=== PATIENT | female | born 1975 | race Caucasian/White ===

== ENCOUNTER 2018-06-10 21:19 | Emergency (ER) | payer MEDICARE, MEDICAID ==
[~2018-06-10] VITALS: Ht 165.1 cm; Wt 121.8 kg
[~2018-06-10 21:19] MED LIST: ALPR1TAB2 PO; CEPH250T PO; CLIN300C85 PO; DIVA500T2 PO; METF500T PO; PROP40TA72 PO; QUET200T PO; SERT100T PO
[2018-06-10 21:43] VITALS: BP 132/84
[2018-06-10] MEDS ORDERED: DOXY100C43 PO (23:39)
[2018-06-10] MEDS ORDERED: CEPH-572 PO (23:39)
== END 2018-06-10 23:52 | disposition home or self-care (01) ==
LOC: ER 21:21
DX: S90.425A Blister (nonthermal), left lesser toe(s), initial encounter (principal); L03.116 Cellulitis of left lower limb; I10 Essential (primary) hypertension; E11.9 Type 2 diabetes mellitus without complications; F15.90 Other stimulant use, unspecified, uncomplicated; G89.29 Other chronic pain; Z90.49 Acquired absence of other specified parts of digestive tract; Z88.2 Allergy status to sulfonamides; Z88.8 Allergy status to other drugs, medicaments and biological substances; Z88.5 Allergy status to narcotic agent; Z79.84 Long term (current) use of oral hypoglycemic drugs; Z79.899 Other long term (current) drug therapy; X58.XXXA Exposure to other specified factors, initial encounter; Y93.89 Activity, other specified; Y92.89 Other specified places as the place of occurrence of the external cause; Y99.8 Other external cause status
CPT/HCPCS: 82948; 99283

== ENCOUNTER 2018-10-22 15:17 | Inpatient (IN) | payer MEDICARE, MEDICAID ==
[~2018-10-22] VITALS: Ht 165.1 cm; Wt 122.0 kg
[~2018-10-22 15:17] MED LIST changes: -CEPH250T PO
[2018-10-22] MEDS ORDERED: normal saline 1000ML IV soln IV ONE (15:40)
[2018-10-22] MEDS ORDERED: ondansetron/PF 4mg/2ml inj IV ONE (15:45)
[2018-10-22] MEDS ORDERED: fentaNYL/PF 50MCG/1 ML 2ML syringe IV ONE (15:45)
[2018-10-22] MEDS ORDERED: piperacillin/tazo 4.5gm/100ml 100 ML IV SCH (16:00)
[2018-10-22 16:02] LABS: BASOPHILS # (AUTO) 0.1 X10'3 (0-0.2); BASOPHILS % (AUTO) 0.6 % (0-1); EOSINOPHILS # (AUTO) 0.3 X10'3 (0-0.9); EOSINOPHILS % (AUTO) 2.3 % (0-6); HEMATOCRIT 42.6 % (35.0-45.0); HEMOGLOBIN 14.4 g/dl (12.0-16.0); LYMPHOCYTES # (AUTO) 2.6 X10'3 (1.1-4.8); LYMPHOCYTES % (AUTO) 20.9 % (21-51); MEAN CORPUSCULAR HEMOGLOBIN 30.5 PG (27.0-31.0); MEAN CORPUSCULAR HGB CONC 33.8 % (33.0-36.5); MEAN CORPUSCULAR VOLUME 90.2 FL (78-98); MEAN PLATELET VOLUME 8.4 FL (7.4-10.4); MONOCYTES # (AUTO) 0.8 X10'3 (0-0.9); MONOCYTES % (AUTO) 6.6 % (2-12); NEUTROPHILS # (AUTO) 8.5 X10'3 (1.8-7.7); NEUTROPHILS % (AUTO) 69.6 % (42-75); PLATELET COUNT 251 X10'3 (140-440); RED BLOOD COUNT 4.72 X10'6 (4.20-5.60); RED CELL DISTRIBUTION WIDTH 14.6 % (11.5-14.5); WHITE BLOOD COUNT 12.2 X10'3 (4.5-11.0)
[2018-10-22 16:19] LABS: ALANINE AMINOTRANSFERASE 74 U/L (12-78); ALBUMIN 3.5 G/DL (3.4-5.0); ALBUMIN/GLOBULIN RATIO 0.9 (1.1-1.5); ALKALINE PHOSPHATASE 103 IU/L (46-116); ANION GAP 9 (8-16); ASPARTATE AMINO TRANSFERASE 42 U/L (10-37); BILIRUBIN,TOTAL 0.5 MG/DL (0.1-1.0); BLOOD UREA NITROGEN 11 MG/DL (7-18); BUN/CREATININE RATIO 10.5 (6.6-38.0); CALCIUM 9.5 MG/DL (8.5-10.1); CHLORIDE 95 MMOL/L (99-107); CREATININE 1.05 MG/DL (0.40-0.90); GLUCOSE 393 MG/DL (70-104); POTASSIUM 4.4 MMOL/L (3.5-5.1); SODIUM 130 MMOL/L (135-145); TOTAL CARBON DIOXIDE 25.9 MMOL/L (24-32); TOTAL PROTEIN 7.6 G/DL (6.4-8.2); eGFR 58 ML/MIN
[2018-10-22] MEDS ORDERED: LURA80TA3 PO (16:50)
[2018-10-22] MEDS ORDERED: LANTUS SQ (16:50)
[2018-10-22] MEDS ORDERED: LURA20TA PO (16:50)
[2018-10-22] MEDS ORDERED: BUSP10TA11 PO (16:50)
[2018-10-22] MEDS ORDERED: ROSU20TA PO (16:51)
[2018-10-22] MEDS ORDERED: ondansetron/PF 4mg/2ml inj IV PRN (17:15)
[2018-10-22] MEDS ORDERED: magnesium hydroxide 30ml (MOM) UD suspension PO PRN (17:15)
[2018-10-22] MEDS ORDERED: mag hydrox/Alum hydrox/simeth 30ml oral suspension PO PRN (17:15)
[2018-10-22 17:26] LABS: INR 1.1 INR; PARTIAL THROMBOPLASTIN TIME 26 SECONDS (22-32); PROTHROMBIN TIME 10.7 SECONDS (9.0-12.0)
[2018-10-22] MEDS ORDERED: ALPRAZolam 0.5mg tablet PO PRN (18:20)
[2018-10-22] MEDS: HYDROcodone/acetaminophen 5mg/325mg tablet PO ONE ×2 (18:48→19:13)
[2018-10-22] MEDS ORDERED: HYDROcodone/acetaminophen 5mg/325mg tablet PO ONE (19:05)
[2018-10-22] MEDS ORDERED: vancomycin/NS 1 GM ADD-VANTAGE 250 ML IV SCH (20:00)
[2018-10-22] MEDS ORDERED: busPIRone 5mg tablet PO SCH (20:00)
[2018-10-22] MEDS: propranolol 40mg tablet PO SCH (20:26)
[2018-10-22] MEDS ORDERED: lurasidone 20mg tablet PO SCH ×3 (21:00)
[2018-10-22] MEDS ORDERED: insulin glargine (Lantus) pen - multi-dose SQ SCH (21:00)
[2018-10-22] MEDS ORDERED: quetiapine 100mg tablet PO SCH (21:00)
[2018-10-22] MEDS: divalproex sodium 500mg tablet.DR PO SCH (21:16)
[2018-10-22] MEDS: morphine 2 MG/ML inj. syringe IV PRN (23:28)
[2018-10-22] MEDS: cefazolin/dext.iso 2gm/50ml 50 ML IV SCH (23:35)
[2018-10-23] MEDS ORDERED: ceFAZolin 1GM/D5W- ADD-VANTAGE 50 ML IV SCH
[2018-10-23] MEDS: morphine 2 MG/ML inj. syringe IV PRN ×2 (04:24→08:29)
[2018-10-23] MEDS ORDERED: enoxaparin 40mg/0.4ml syringe SUBCUT SCH (08:00)
[2018-10-23] MEDS ORDERED: atorvastatin 10mg tablet PO SCH (08:00)
[2018-10-23] MEDS ORDERED: sertraline 50mg tablet PO SCH (08:00)
[2018-10-23] MEDS: cefazolin/dext.iso 2gm/50ml 50 ML IV SCH (08:29)
[2018-10-23 09:30] VITALS: BP 135/67
[2018-10-23 09:43] LABS: BASOPHILS % (AUTO) 0.2 % (0-1); EOSINOPHILS # (AUTO) 0.4 X10'3 (0-0.9); EOSINOPHILS % (AUTO) 4.2 % (0-6); HEMATOCRIT 38.9 % (35.0-45.0); HEMOGLOBIN 12.9 g/dl (12.0-16.0); LYMPHOCYTES % (AUTO) 22.6 % (21-51); MEAN CORPUSCULAR HEMOGLOBIN 30.3 PG (27.0-31.0); MEAN CORPUSCULAR HGB CONC 33.3 % (33.0-36.5); MEAN CORPUSCULAR VOLUME 90.9 FL (78-98); MEAN PLATELET VOLUME 8.6 FL (7.4-10.4); MONOCYTES # (AUTO) 0.6 X10'3 (0-0.9); MONOCYTES % (AUTO) 7.4 % (2-12); NEUTROPHILS # (AUTO) 5.7 X10'3 (1.8-7.7); NEUTROPHILS % (AUTO) 65.6 % (42-75); PLATELET COUNT 190 X10'3 (140-440); RED BLOOD COUNT 4.27 X10'6 (4.20-5.60); RED CELL DISTRIBUTION WIDTH 14.8 % (11.5-14.5); WHITE BLOOD COUNT 8.6 X10'3 (4.5-11.0)
[2018-10-23 10:04] LABS: ALBUMIN 2.9 G/DL (3.4-5.0); ANION GAP 6 (8-16); BLOOD UREA NITROGEN 10 MG/DL (7-18); CALCIUM 8.7 MG/DL (8.5-10.1); CHLORIDE 101 MMOL/L (99-107); CREATININE 0.91 MG/DL (0.40-0.90); GLUCOSE 318 MG/DL (70-104); POTASSIUM 4.8 MMOL/L (3.5-5.1); SODIUM 139 MMOL/L (135-145); TOTAL CARBON DIOXIDE 31.9 MMOL/L (24-32); eGFR 68 ML/MIN
[2018-10-23] MEDS: divalproex sodium 500mg tablet.DR PO SCH (10:16)
[2018-10-23] MEDS: propranolol 40mg tablet PO SCH (10:16)
[2018-10-23] MEDS ORDERED: HYDROcodone/acetaminophen 5mg/325mg tablet PO PRN (11:20)
[2018-10-23 11:30] VITALS: BP 135/72
[2018-10-24] MEDS ORDERED: VANCOMYCIN LEVEL IV ONE (08:30)
== END 2018-10-23 12:00 | disposition left against medical advice (07) | DRG 872 ==
LOC: ER 15:18 → ED HOLD 17:12 → ORTHO 4S 10-23 08:00
PROVIDERS: ADMIT Internal Medicine; ATTEND Family Medicine
DX: A41.9 Sepsis, unspecified organism (principal); L03.116 Cellulitis of left lower limb; Z68.41 Body mass index [BMI] 40.0-44.9, adult; E11.9 Type 2 diabetes mellitus without complications; E66.01 Morbid (severe) obesity due to excess calories; I10 Essential (primary) hypertension; G89.29 Other chronic pain; M54.9 Dorsalgia, unspecified; F41.9 Anxiety disorder, unspecified; F31.9 Bipolar disorder, unspecified; F15.90 Other stimulant use, unspecified, uncomplicated; E78.5 Hyperlipidemia, unspecified; Z98.891 History of uterine scar from previous surgery; Z90.49 Acquired absence of other specified parts of digestive tract; Z90.89 Acquired absence of other organs; Z88.5 Allergy status to narcotic agent; Z88.8 Allergy status to other drugs, medicaments and biological substances; Z88.6 Allergy status to analgesic agent; Z88.1 Allergy status to other antibiotic agents; Z91.030 Bee allergy status; Z79.02 Long term (current) use of antithrombotics/antiplatelets; Z79.899 Other long term (current) drug therapy; Z79.4 Long term (current) use of insulin; Z79.84 Long term (current) use of oral hypoglycemic drugs; Z87.440 Personal history of urinary (tract) infections; Z87.891 Personal history of nicotine dependence; Z83.3 Family history of diabetes mellitus
CPT/HCPCS: 36415; 71045; 73630; 80048; 80053; 82948; 83605; 83880; 84145; 85025; 85610; 85730; 87040; 87070; 96365; 96375; 99285; G0378; J0690; J1650; J1815; J2270; J2405; J2543; J3010; J3370

== ENCOUNTER 2018-11-09 09:09 | Inpatient (IN) | payer MEDICARE, MEDICAID ==
[~2018-11-09] VITALS: Ht 165.1 cm; Wt 122.7 kg
[~2018-11-09 09:09] MED LIST changes: +BUSP10TA11 PO; -CLIN300C85 PO; +LANTUS SQ; +LURA20TA PO; +LURA80TA3 PO; +ROSU20TA PO
[2018-11-09] MEDS ORDERED: piperacillin/tazo 3.375gm/50ml 50 ML IV ONE (09:45)
[2018-11-09] MEDS ORDERED: vancomycin/NS 1 GM ADD-VANTAGE 250 ML IV ONE (09:45)
[2018-11-09 10:43] LABS: BASOPHILS # (AUTO) 0.1 X10'3 (0-0.2); BASOPHILS % (AUTO) 0.7 % (0-1); EOSINOPHILS # (AUTO) 0.3 X10'3 (0-0.9); EOSINOPHILS % (AUTO) 3.2 % (0-6); HEMATOCRIT 39.8 % (35.0-45.0); HEMOGLOBIN 13.4 g/dl (12.0-16.0); LYMPHOCYTES # (AUTO) 2.3 X10'3 (1.1-4.8); LYMPHOCYTES % (AUTO) 26.1 % (21-51); MEAN CORPUSCULAR HEMOGLOBIN 29.6 PG (27.0-31.0); MEAN CORPUSCULAR HGB CONC 33.6 % (33.0-36.5); MEAN CORPUSCULAR VOLUME 88.1 FL (78-98); MEAN PLATELET VOLUME 8.6 FL (7.4-10.4); MONOCYTES # (AUTO) 0.6 X10'3 (0-0.9); MONOCYTES % (AUTO) 6.6 % (2-12); NEUTROPHILS # (AUTO) 5.6 X10'3 (1.8-7.7); NEUTROPHILS % (AUTO) 63.4 % (42-75); PLATELET COUNT 282 X10'3 (140-440); RED BLOOD COUNT 4.52 X10'6 (4.20-5.60); WHITE BLOOD COUNT 8.8 X10'3 (4.5-11.0)
[2018-11-09 10:50] LABS: INR 1.1 INR; PARTIAL THROMBOPLASTIN TIME 26 SECONDS (22-32); PROTHROMBIN TIME 11.1 SECONDS (9.0-12.0)
[2018-11-09 10:51] LABS: ALANINE AMINOTRANSFERASE 18 U/L (12-78); ALBUMIN 3.1 G/DL (3.4-5.0); ALBUMIN/GLOBULIN RATIO 0.8 (1.1-1.5); ALKALINE PHOSPHATASE 84 IU/L (46-116); ANION GAP 10 (8-16); ASPARTATE AMINO TRANSFERASE 13 U/L (10-37); BILIRUBIN,TOTAL 0.4 MG/DL (0.1-1.0); BLOOD UREA NITROGEN 15 MG/DL (7-18); BUN/CREATININE RATIO 16.5 (6.6-38.0); CALCIUM 8.4 MG/DL (8.5-10.1); CHLORIDE 98 MMOL/L (99-107); CREATININE 0.91 MG/DL (0.40-0.90); GLUCOSE 287 MG/DL (70-104); MAGNESIUM 1.4 MG/DL (1.5-2.4); POTASSIUM 4.1 MMOL/L (3.5-5.1); SODIUM 136 MMOL/L (135-145); TOTAL CARBON DIOXIDE 27.8 MMOL/L (24-32); TOTAL PROTEIN 6.9 G/DL (6.4-8.2); eGFR 68 ML/MIN
[2018-11-09] MEDS ORDERED: ALPRAZOLAM PO PRN (12:15)
[2018-11-09] MEDS ORDERED: normal saline 1000ml 1,000 ML IV SCH (12:16)
[2018-11-09] MEDS ORDERED: mag hydrox/Alum hydrox/simeth 30ml oral suspension PO PRN (12:20)
[2018-11-09] MEDS ORDERED: morphine 2 MG/ML inj. syringe IV PRN (12:20)
[2018-11-09] MEDS ORDERED: magnesium 4gm in 100ml NS 100 ML IV PRN (12:20)
[2018-11-09] MEDS ORDERED: HYDROcodone/acetaminophen 5mg/325mg tablet PO PRN (12:20)
[2018-11-09] MEDS ORDERED: magnesium hydroxide 30ml (MOM) UD suspension PO PRN (12:20)
[2018-11-09] MEDS ORDERED: ondansetron/PF 4mg/2ml inj IV PRN (12:20)
[2018-11-09] MEDS ORDERED: potassium Cl 40MEQ/NS 500ml 500 ML IV PRN ×2 (12:20)
[2018-11-09] MEDS ORDERED: magnesium Cl slow-release 64mg tablet PO PRN (12:20)
[2018-11-09] MEDS ORDERED: acetaminophen 325mg tablet PO PRN ×2 (12:20)
[2018-11-09] MEDS ORDERED: potassium Cl 20 mEq SR tablet PO PRN ×2 (12:20)
[2018-11-09] MEDS ORDERED: dextrose ORAL solution 15 GM/59 ML bottle PO PRN ×2 (12:25)
[2018-11-09] MEDS ORDERED: dextrose 50%-water 50ml dispensing syringe IV PRN ×2 (12:25)
[2018-11-09] MEDS ORDERED: insulin Lispro (HumaLOG) vial - multi-dose SQ SCH (12:25)
[2018-11-09] MEDS ORDERED: MESSAGE TO PHARMACY PO ONE (12:25)
[2018-11-09] MEDS ORDERED: glucagon, human recombinant 1mg kit SUBCUT PRN (12:25)
[2018-11-09] MEDS ORDERED: divalproex sodium 500mg tablet.DR PO SCH (13:00)
[2018-11-09 13:03] LABS: HEMOGLOBIN A1C 10.9 % (4.5-6.2)
[2018-11-09 15:08] VITALS: BP 132/66
[2018-11-09] MEDS ORDERED: busPIRone 5mg tablet PO SCH (20:00)
[2018-11-09] MEDS ORDERED: propranolol 40mg tablet PO SCH (20:00)
[2018-11-09] MEDS ORDERED: heparin, porcine 5000 units/ml vial SQ SCH (20:00)
[2018-11-09] MEDS ORDERED: insulin glargine (Lantus) pen - multi-dose SQ SCH ×2 (21:00)
[2018-11-09] MEDS ORDERED: temazepam 15mg capsule PO PRN (21:00)
[2018-11-09] MEDS ORDERED: quetiapine 100mg tablet PO SCH (21:00)
[2018-11-10] MEDS ORDERED: K and/or MAG REPLACEMENT MC SCH (08:00)
[2018-11-10] MEDS ORDERED: nicotine 14mg patch - 24hr TD SCH (08:00)
[2018-11-10] MEDS ORDERED: atorvastatin 10mg tablet PO SCH (08:00)
[2018-11-10] MEDS ORDERED: sertraline 50mg tablet PO SCH (08:00)
[2018-11-10] MEDS ORDERED: VANCOMYCIN LEVEL IV ONE (18:30)
== END 2018-11-09 17:55 | disposition left against medical advice (07) | DRG 603 ==
LOC: ER 09:10 → ED HOLD 12:16
PROVIDERS: ADMIT Internal Medicine; ATTEND Internal Medicine
PROC: 0H9NXZZ Drainage of Left Foot Skin, External Approach (ICD-10-PCS; principal; 2018-11-09)
DX: L03.116 Cellulitis of left lower limb (principal); L02.612 Cutaneous abscess of left foot; F31.9 Bipolar disorder, unspecified; G89.4 Chronic pain syndrome; I10 Essential (primary) hypertension; E11.9 Type 2 diabetes mellitus without complications; J44.9 Chronic obstructive pulmonary disease, unspecified; F41.9 Anxiety disorder, unspecified; M54.9 Dorsalgia, unspecified; F17.200 Nicotine dependence, unspecified, uncomplicated; F15.90 Other stimulant use, unspecified, uncomplicated; Z53.21 Procedure and treatment not carried out due to patient leaving prior to being seen by health care provider; Z90.49 Acquired absence of other specified parts of digestive tract; Z88.5 Allergy status to narcotic agent; Z88.2 Allergy status to sulfonamides; Z88.8 Allergy status to other drugs, medicaments and biological substances; Z91.030 Bee allergy status; Z79.899 Other long term (current) drug therapy; Z80.0 Family history of malignant neoplasm of digestive organs; Z71.6 Tobacco abuse counseling
CPT/HCPCS: 10060; 36415; 71045; 73620; 76881; 80053; 83036; 83605; 83735; 84145; 85025; 85610; 85730; 87040; 87070; 87077; 87186; 93005; 96365; 96368; 99285; G0378; J1815; J2543; J3370

== ENCOUNTER 2019-03-17 15:43 | Emergency (ER) | payer MEDICARE, MEDICAID ==
[~2019-03-17] VITALS: Ht 165.1 cm; Wt 121.0 kg
[~2019-03-17 15:43] MED LIST changes: -ROSU20TA PO; +ROSU20TA2 PO
[2019-03-17 16:08] VITALS: BP 158/110
--- NOTE | 2019-03-17 16:19 | NUR ---
pt not in lobby
== END 2019-03-17 16:37 | disposition home or self-care (01) ==
LOC: ER 15:46
DX: S60.454A Superficial foreign body of right ring finger, initial encounter (principal); I10 Essential (primary) hypertension; E11.9 Type 2 diabetes mellitus without complications; G89.29 Other chronic pain; F15.90 Other stimulant use, unspecified, uncomplicated; Z88.2 Allergy status to sulfonamides; Z88.5 Allergy status to narcotic agent; Z88.8 Allergy status to other drugs, medicaments and biological substances; Z88.6 Allergy status to analgesic agent; Z79.4 Long term (current) use of insulin; Z79.899 Other long term (current) drug therapy; Z90.49 Acquired absence of other specified parts of digestive tract; Z98.890 Other specified postprocedural states; W45.8XXA Other foreign body or object entering through skin, initial encounter; Y93.89 Activity, other specified; Y92.89 Other specified places as the place of occurrence of the external cause; Y99.8 Other external cause status
CPT/HCPCS: 99284

== ENCOUNTER 2019-07-27 21:22 | Emergency (ER) | payer MEDICARE, MEDICAID ==
[~2019-07-27] VITALS: Ht 165.1 cm; Wt 124.5 kg
[2019-07-27 21:30] VITALS: BP 139/86
== END 2019-07-27 23:09 | disposition left against medical advice (07) ==
LOC: ER 21:22
DX: T80.219A Unspecified infection due to central venous catheter, initial encounter (principal); Z53.21 Procedure and treatment not carried out due to patient leaving prior to being seen by health care provider; Y92.89 Other specified places as the place of occurrence of the external cause

== ENCOUNTER → 2019-08-03 | Outpatient (CLI) | payer MEDICARE, MEDICAID ==
[2019-08-03 17:41] LABS: ALBUMIN 3.5 G/DL (3.4-5.0); ANION GAP 11 (8-16); BLOOD UREA NITROGEN 13 MG/DL (7-18); BUN/CREATININE RATIO 15.7 (6.6-38.0); C-REACTIVE PROTEIN 0.99 MG/DL (0.0-0.5); CALCIUM 8.4 MG/DL (8.5-10.1); CHLORIDE 107 MMOL/L (99-107); CREATININE 0.83 MG/DL (0.40-0.90); GLUCOSE 78 MG/DL (70-104); POTASSIUM 4.2 MMOL/L (3.5-5.1); SODIUM 144 MMOL/L (135-145); TOTAL CARBON DIOXIDE 25.7 MMOL/L (24-32); eGFR 76 ML/MIN
[2019-08-03 17:42] LABS: BASOPHILS # (AUTO) 0.1 X10'3 (0-0.2); BASOPHILS % (AUTO) 0.8 % (0-1); EOSINOPHILS # (AUTO) 0.2 X10'3 (0-0.9); HEMOGLOBIN 13.4 g/dl (12.0-16.0); LYMPHOCYTES # (AUTO) 3.9 X10'3 (1.1-4.8); LYMPHOCYTES % (AUTO) 39.9 % (21-51); MEAN CORPUSCULAR HEMOGLOBIN 29.1 PG (27.0-31.0); MEAN CORPUSCULAR HGB CONC 33.6 g/dL (33.0-36.5); MEAN CORPUSCULAR VOLUME 86.7 FL (78-98); MEAN PLATELET VOLUME 7.8 FL (7.4-10.4); MONOCYTES # (AUTO) 0.7 X10'3 (0-0.9); MONOCYTES % (AUTO) 6.8 % (2-12); NEUTROPHILS # (AUTO) 4.9 X10'3 (1.8-7.7); NEUTROPHILS % (AUTO) 50.5 % (42-75); PLATELET COUNT 276 X10'3 (140-440); RED BLOOD COUNT 4.61 X10'6 (4.20-5.60); RED CELL DISTRIBUTION WIDTH 16.1 % (11.5-14.5); WHITE BLOOD COUNT 9.8 X10'3 (4.5-11.0)
== END | disposition home or self-care (01) ==
LOC: LAB SPEC 17:07
PROVIDERS: ATTEND Family Medicine
DX: E11.621 Type 2 diabetes mellitus with foot ulcer (principal)
CPT/HCPCS: 36415; 80048; 85025; 85651; 86140

== ENCOUNTER 2019-08-17 17:43 | Outpatient (CLI) | payer MEDICARE, MEDICAID ==
[2019-08-17 18:03] LABS: BASOPHILS # (AUTO) 0.1 X10'3 (0-0.2); BASOPHILS % (AUTO) 1.2 % (0-1); EOSINOPHILS # (AUTO) 0.2 X10'3 (0-0.9); EOSINOPHILS % (AUTO) 2.8 % (0-6); HEMATOCRIT 43.1 % (35.0-45.0); HEMOGLOBIN 14.4 g/dl (12.0-16.0); LYMPHOCYTES # (AUTO) 3.4 X10'3 (1.1-4.8); LYMPHOCYTES % (AUTO) 45.9 % (21-51); MEAN CORPUSCULAR HEMOGLOBIN 28.9 PG (27.0-31.0); MEAN CORPUSCULAR HGB CONC 33.3 g/dL (33.0-36.5); MEAN CORPUSCULAR VOLUME 86.7 FL (78-98); MEAN PLATELET VOLUME 8.5 FL (7.4-10.4); MONOCYTES # (AUTO) 0.5 X10'3 (0-0.9); MONOCYTES % (AUTO) 7.3 % (2-12); NEUTROPHILS # (AUTO) 3.1 X10'3 (1.8-7.7); NEUTROPHILS % (AUTO) 42.8 % (42-75); PLATELET COUNT 261 X10'3 (140-440); RED BLOOD COUNT 4.97 X10'6 (4.20-5.60); RED CELL DISTRIBUTION WIDTH 15.5 % (11.5-14.5); WHITE BLOOD COUNT 7.3 X10'3 (4.5-11.0)
== END 2019-08-17 23:59 | disposition home or self-care (01) ==
LOC: LAB SPEC 17:43
PROVIDERS: ATTEND Family Medicine
DX: E11.621 Type 2 diabetes mellitus with foot ulcer (principal)
CPT/HCPCS: 36415; 85025; 85651; 86140

== ENCOUNTER 2020-07-24 09:54 | Emergency (ER) | payer MEDICARE, MEDICAID ==
[~2020-07-24] VITALS: Ht 165.1 cm; Wt 118.2 kg
[2020-07-24 09:56] VITALS: BP 167/74
[2020-07-24] MEDS ORDERED: DOXY100C76 PO (10:50)
[2020-07-24] MEDS ORDERED: LACT1CAP60 PO (10:50)
[2020-07-24] MEDS ORDERED: AMOX-422 PO (10:50)
== END 2020-07-24 11:06 | disposition home or self-care (01) ==
LOC: ER 09:54
DX: L03.032 Cellulitis of left toe (principal); E11.622 Type 2 diabetes mellitus with other skin ulcer; L97.829 Non-pressure chronic ulcer of other part of left lower leg with unspecified severity; I10 Essential (primary) hypertension; E11.9 Type 2 diabetes mellitus without complications; G89.29 Other chronic pain; F41.9 Anxiety disorder, unspecified; F31.9 Bipolar disorder, unspecified; F15.90 Other stimulant use, unspecified, uncomplicated; Z90.89 Acquired absence of other organs; Z90.49 Acquired absence of other specified parts of digestive tract; Z98.890 Other specified postprocedural states; Z88.2 Allergy status to sulfonamides; Z88.5 Allergy status to narcotic agent; Z88.8 Allergy status to other drugs, medicaments and biological substances; Z79.4 Long term (current) use of insulin; Z79.899 Other long term (current) drug therapy
CPT/HCPCS: 99283

== ENCOUNTER 2021-05-20 20:01 | Emergency (ER) | payer MEDICARE, MEDICAID ==
[~2021-05-20] VITALS: Ht 165.1 cm; Wt 118.2 kg
[~2021-05-20 20:01] MED LIST changes: +LACT1CAP60 PO
[2021-05-20 20:13] VITALS: BP 136/80
[2021-05-20 21:59] LABS: BASOPHILS # (AUTO) 0.1 X10'3 (0-0.2); BASOPHILS % (AUTO) 0.9 % (0-1); EOSINOPHILS # (AUTO) 0.3 X10'3 (0-0.9); EOSINOPHILS % (AUTO) 2.9 % (0-6); HEMATOCRIT 39.8 % (35.0-45.0); HEMOGLOBIN 13.5 g/dl (12.0-16.0); LYMPHOCYTES # (AUTO) 3.3 X10'3 (1.1-4.8); LYMPHOCYTES % (AUTO) 28.5 % (21-51); MEAN CORPUSCULAR HEMOGLOBIN 30.3 PG (27.0-31.0); MEAN CORPUSCULAR VOLUME 89.2 FL (78-98); MEAN PLATELET VOLUME 6.8 FL (7.4-10.4); MONOCYTES # (AUTO) 1.1 X10'3 (0-0.9); MONOCYTES % (AUTO) 9.6 % (2-12); NEUTROPHILS # (AUTO) 6.6 X10'3 (1.8-7.7); NEUTROPHILS % (AUTO) 58.1 % (42-75); PLATELET COUNT 489 X10'3 (140-440); RED BLOOD COUNT 4.46 X10'6 (4.20-5.60); RED CELL DISTRIBUTION WIDTH 14.8 % (11.5-14.5); WHITE BLOOD COUNT 11.4 X10'3 (4.5-11.0)
[2021-05-20 22:06] LABS: ALANINE AMINOTRANSFERASE 31 U/L (12-78); ALBUMIN/GLOBULIN RATIO 0.6 (1.1-1.5); ALKALINE PHOSPHATASE 112 IU/L (46-116); ANION GAP 9 (8-16); ASPARTATE AMINO TRANSFERASE 21 U/L (10-37); BILIRUBIN,TOTAL 0.3 MG/DL (0.1-1.0); BLOOD UREA NITROGEN 23 MG/DL (7-18); BUN/CREATININE RATIO 22.8 (6.6-38.0); CALCIUM 9.2 MG/DL (8.5-10.1); CHLORIDE 97 MMOL/L (99-107); CREATININE 1.01 MG/DL (0.40-0.90); GLUCOSE 208 MG/DL (70-104); POTASSIUM 4.3 MMOL/L (3.5-5.1); SODIUM 136 MMOL/L (135-145); TOTAL CARBON DIOXIDE 30.3 MMOL/L (24-32); TOTAL PROTEIN 8.1 G/DL (6.4-8.2); eGFR 60 ML/MIN
[2021-05-20] MEDS ORDERED: levoFLOXACIN-Levaquin 750MG/D5 150 ML IV ONE (22:40)
[2021-05-20] MEDS ORDERED: LEVO500T89 PO (22:48)
[2021-05-20] MEDS ORDERED: levoFLOXACIN 750MG TABLET PO ONE (23:30)
== END 2021-05-20 23:56 | disposition home or self-care (01) ==
LOC: ER 20:02
DX: E11.621 Type 2 diabetes mellitus with foot ulcer (principal); L03.116 Cellulitis of left lower limb; E11.42 Type 2 diabetes mellitus with diabetic polyneuropathy; I10 Essential (primary) hypertension; G89.29 Other chronic pain; F41.9 Anxiety disorder, unspecified; F31.9 Bipolar disorder, unspecified; F15.90 Other stimulant use, unspecified, uncomplicated; Z87.440 Personal history of urinary (tract) infections; Z90.49 Acquired absence of other specified parts of digestive tract; Z90.89 Acquired absence of other organs; Z98.890 Other specified postprocedural states; Z88.2 Allergy status to sulfonamides; Z88.5 Allergy status to narcotic agent; Z88.8 Allergy status to other drugs, medicaments and biological substances; Z79.4 Long term (current) use of insulin; Z79.2 Long term (current) use of antibiotics; Z79.899 Other long term (current) drug therapy
CPT/HCPCS: 36415; 73630; 80053; 84145; 85025; 85651; 99284

== ENCOUNTER 2021-09-03 14:31 | Inpatient (IN) | payer MEDICARE, MEDICAID ==
[~2021-09-03] VITALS: Ht 165.1 cm; Wt 118.2 kg
[2021-09-03 15:45] LABS: BASOPHILS % (AUTO) 0.7 % (0-1); EOSINOPHILS # (AUTO) 0.4 X10'3 (0-0.9); EOSINOPHILS % (AUTO) 7.2 % (0-6); HEMATOCRIT 32.9 % (35.0-45.0); HEMOGLOBIN 10.9 g/dl (12.0-16.0); LYMPHOCYTES % (AUTO) 33.4 % (21-51); MEAN CORPUSCULAR HEMOGLOBIN 26.9 PG (27.0-31.0); MEAN CORPUSCULAR VOLUME 81.5 FL (78-98); MEAN PLATELET VOLUME 6.9 FL (7.4-10.4); MONOCYTES # (AUTO) 0.5 X10'3 (0-0.9); MONOCYTES % (AUTO) 7.7 % (2-12); PLATELET COUNT 312 X10'3 (140-440); RED BLOOD COUNT 4.04 X10'6 (4.20-5.60); RED CELL DISTRIBUTION WIDTH 18.4 % (11.5-14.5); WHITE BLOOD COUNT 5.9 X10'3 (4.5-11.0)
[2021-09-03 16:02] LABS: ALANINE AMINOTRANSFERASE 22 U/L (12-78); ALBUMIN 3.1 G/DL (3.4-5.0); ALBUMIN/GLOBULIN RATIO 0.8 (1.1-1.5); ALKALINE PHOSPHATASE 107 IU/L (46-116); ANION GAP 9 (8-16); ASPARTATE AMINO TRANSFERASE 18 U/L (10-37); BILIRUBIN,TOTAL 0.2 MG/DL (0.1-1.0); BLOOD UREA NITROGEN 29 MG/DL (7-18); BUN/CREATININE RATIO 31.5 (6.6-38.0); CALCIUM 8.7 MG/DL (8.5-10.1); CHLORIDE 104 MMOL/L (99-107); CREATININE 0.92 MG/DL (0.40-0.90); GLUCOSE 185 MG/DL (70-104); POTASSIUM 4.4 MMOL/L (3.5-5.1); SODIUM 144 MMOL/L (135-145); TOTAL CARBON DIOXIDE 31.4 MMOL/L (24-32); TOTAL PROTEIN 6.9 G/DL (6.4-8.2); eGFR 67 ML/MIN
[2021-09-03 16:11] LABS: TROPONIN I 0.21 NG/ML (0.0-0.05)
--- NOTE | 2021-09-03 16:18 | NUR ---
Pt requires IV in AC for CT, Pt has hand IV with multiple missed attempts in AC vein. MD made aware and will attempt at US guided IV. Setup at bedside
[2021-09-03] MEDS ORDERED: iohexol 350MG/ML 100ml bottle IV ONE (16:56)
[2021-09-03] MEDS ORDERED: aspirin 81mg tab.chew PO ONE (17:30)
[2021-09-03] MEDS ORDERED: heparin 10,000 units/1 ML INJ IV ONE ×2 (18:00→18:05)
[2021-09-03] MEDS ORDERED: potassium Cl 20 mEq SR tablet PO PRN ×2 (19:30)
[2021-09-03] MEDS ORDERED: PERFLUTREN PROTEIN-A MICROSPHR (Optison) 0.22 MG/ML 3ML VIAL IV PRN (19:30)
[2021-09-03] MEDS ORDERED: mag hydrox/Alum hydrox/simeth 30ml oral suspension PO PRN (19:30)
[2021-09-03] MEDS ORDERED: potassium Cl 40MEQ/1/2NS 520ml 520 ML IV PRN ×2 (19:30)
[2021-09-03] MEDS ORDERED: ondansetron/PF 4mg/2ml inj IV PRN (19:30)
[2021-09-03] MEDS ORDERED: magnesium hydroxide 30ml (MOM) UD suspension PO PRN (19:30)
[2021-09-03] MEDS: heparin 25,000 UNIT/250ml bag 250 ML IV SCH (19:31)
[2021-09-03] MEDS ORDERED: dextrose ORAL solution 15 GM/59 ML bottle PO PRN ×2 (19:35)
[2021-09-03] MEDS ORDERED: MESSAGE TO PHARMACY PO ONE (19:35)
[2021-09-03] MEDS ORDERED: glucagon, human recombinant 1mg kit SUBCUT PRN (19:35)
[2021-09-03] MEDS ORDERED: dextrose 50%-water 50ml dispensing syringe IV PRN ×2 (19:35)
[2021-09-03] MEDS ORDERED: insulin Lispro (HumaLOG) vial - multi-dose SQ SCH (19:35)
[2021-09-03] MEDS: normal saline 1000ml 1,000 ML IV SCH (19:39)
[2021-09-03] MEDS: docusate sod 100mg capsule PO SCH (19:39)
[2021-09-03] MEDS ORDERED: oxyCODONE IR 5mg (immed. release) tablet PO ONE (19:40)
[2021-09-03] MEDS ORDERED: LURA120T PO (19:41)
[2021-09-03] MEDS ORDERED: DIVA500T9 PO ×2 (19:41→19:47)
[2021-09-03] MEDS ORDERED: DOCU250C40 PO (19:41)
[2021-09-03] MEDS ORDERED: LISI20TA28 PO (19:41)
[2021-09-03] MEDS ORDERED: PROP20TA6 PO (19:41)
[2021-09-03] MEDS ORDERED: LISD50CA3 PO (19:41)
[2021-09-03] MEDS ORDERED: DIVA-74 PO (19:47)
[2021-09-03] MEDS ORDERED: [UNRECOGNIZED DRUG - CODE] PO (19:47)
[2021-09-03] MEDS ORDERED: QUET100T34 PO (19:47)
[2021-09-03] MEDS ORDERED: ROSU40TA PO (19:55)
[2021-09-03] MEDS ORDERED: OXYC-145 PO (19:55)
[2021-09-03] MEDS: K and/or MAG REPLACEMENT MC SCH (19:57)
[2021-09-03 20:02] LABS: HEMOGLOBIN A1C 6.5 % (4.5-6.2)
[2021-09-03] MEDS: quetiapine 100mg tablet PO SCH (21:02)
[2021-09-03] MEDS: divalproex sod 250mg ER (24-hour) tablet PO SCH (21:03)
[2021-09-03] MEDS: lurasidone 60mg tablet PO SCH (21:03)
[2021-09-04] MEDS: oxyCODONE IR 5mg (immed. release) tablet PO PRN ×5 (01:20→22:29)
[2021-09-04] MEDS: HYDROmorphone inj. 0.5 MG/0.5 ML DISP.SYRIN IV PRN ×3 (03:50→19:33)
[2021-09-04] MEDS: lisdexamfetamine dimesylate 40mg capsule PO SCH (07:08)
[2021-09-04] MEDS: docusate sod 100mg capsule PO SCH (07:10)
[2021-09-04] MEDS: calcium carbonate/vitamin D3 tablet PO SCH ×2 (07:10→19:27)
[2021-09-04] MEDS: docusate sod 250mg capsule PO SCH (07:10)
[2021-09-04] MEDS: lisinopril 20mg tablet PO SCH (07:11)
[2021-09-04] MEDS: heparin 25,000 UNIT/250ml bag 250 ML IV SCH ×2 (07:14→10:36)
[2021-09-04] MEDS: divalproex 250mg tablet, delayed-release PO SCH (07:24)
[2021-09-04] MEDS: divalproex sod 250mg ER (24-hour) tablet PO SCH ×2 (07:24→19:41)
[2021-09-04] MEDS: lisdexamfetamine dimesylate 10mg capsule PO SCH (07:25)
[2021-09-04] MEDS: propranolol 10mg tablet PO SCH ×2 (07:25→19:29)
[2021-09-04] MEDS: K and/or MAG REPLACEMENT MC SCH ×2 (08:00→19:27)
[2021-09-04 08:47] LABS: BASOPHILS # (AUTO) 0.1 X10'3 (0-0.2); BASOPHILS % (AUTO) 1.1 % (0-1); EOSINOPHILS # (AUTO) 0.4 X10'3 (0-0.9); EOSINOPHILS % (AUTO) 5.8 % (0-6); HEMOGLOBIN 9.7 g/dl (12.0-16.0); LYMPHOCYTES # (AUTO) 1.7 X10'3 (1.1-4.8); LYMPHOCYTES % (AUTO) 23.5 % (21-51); MEAN CORPUSCULAR HEMOGLOBIN 26.8 PG (27.0-31.0); MEAN CORPUSCULAR HGB CONC 32.3 g/dL (33.0-36.5); MEAN PLATELET VOLUME 7.8 FL (7.4-10.4); MONOCYTES # (AUTO) 0.7 X10'3 (0-0.9); MONOCYTES % (AUTO) 9.5 % (2-12); NEUTROPHILS # (AUTO) 4.4 X10'3 (1.8-7.7); NEUTROPHILS % (AUTO) 60.1 % (42-75); PLATELET COUNT 308 X10'3 (140-440); RED BLOOD COUNT 3.61 X10'6 (4.20-5.60); RED CELL DISTRIBUTION WIDTH 18.2 % (11.5-14.5); WHITE BLOOD COUNT 7.4 X10'3 (4.5-11.0)
[2021-09-04] MEDS ORDERED: magnesium Cl slow-release 64mg tablet PO PRN (09:25)
[2021-09-04] MEDS ORDERED: magnesium 4gm in 100ml NS 100 ML IV PRN (09:25)
[2021-09-04] MEDS ORDERED: piperacillin/tazo 3.375gm/50ml 50 ML IV SCH (09:30)
[2021-09-04] MEDS ORDERED: MESSAGE TO PHARMACY PO ONE (09:30)
[2021-09-04] MEDS ORDERED: dextrose ORAL solution 15 GM/59 ML bottle PO PRN ×2 (09:30)
[2021-09-04] MEDS ORDERED: dextrose 50%-water 50ml dispensing syringe IV PRN ×2 (09:30)
[2021-09-04] MEDS ORDERED: glucagon, human recombinant 1mg kit SUBCUT PRN (09:30)
[2021-09-04] MEDS ORDERED: VANCOmycin 1250MG/NS 250ml Bag 250 ML IV SCH (10:00)
[2021-09-04 10:04] LABS: ALANINE AMINOTRANSFERASE 23 U/L (12-78); ALBUMIN 3.2 G/DL (3.4-5.0); ALBUMIN/GLOBULIN RATIO 0.8 (1.1-1.5); ALKALINE PHOSPHATASE 119 IU/L (46-116); ANION GAP 10 (8-16); ASPARTATE AMINO TRANSFERASE 11 U/L (10-37); BILIRUBIN,TOTAL 0.4 MG/DL (0.1-1.0); BLOOD UREA NITROGEN 22 MG/DL (7-18); BUN/CREATININE RATIO 30.1 (6.6-38.0); CALCIUM 8.7 MG/DL (8.5-10.1); CHLORIDE 101 MMOL/L (99-107); CREATININE 0.73 MG/DL (0.40-0.90); GLUCOSE 162 MG/DL (70-104); POTASSIUM 4.5 MMOL/L (3.5-5.1); SODIUM 141 MMOL/L (135-145); TOTAL CARBON DIOXIDE 30.1 MMOL/L (24-32); TOTAL PROTEIN 7.3 G/DL (6.4-8.2); eGFR 87 ML/MIN
[2021-09-04] MEDS: heparin 10,000 units/1 ML INJ IV PRN (10:36)
[2021-09-04] MEDS ORDERED: OXYC5TAB2 PO (10:56)
[2021-09-04] MEDS ORDERED: ROSU40TA PO (10:58)
[2021-09-04 11:04] LABS: ALANINE AMINOTRANSFERASE 23 U/L (12-78); ALBUMIN 3.3 G/DL (3.4-5.0); ALBUMIN/GLOBULIN RATIO 0.8 (1.1-1.5); ALKALINE PHOSPHATASE 121 IU/L (46-116); ANION GAP 14 (8-16); ASPARTATE AMINO TRANSFERASE 13 U/L (10-37); BILIRUBIN,TOTAL 0.4 MG/DL (0.1-1.0); BLOOD UREA NITROGEN 23 MG/DL (7-18); BUN/CREATININE RATIO 29.9 (6.6-38.0); CALCIUM 8.9 MG/DL (8.5-10.1); CHLORIDE 101 MMOL/L (99-107); CREATININE 0.77 MG/DL (0.40-0.90); GLUCOSE 161 MG/DL (70-104); PARTIAL THROMBOPLASTIN TIME 28 SECONDS (22-32); POTASSIUM 4.5 MMOL/L (3.5-5.1); SODIUM 142 MMOL/L (135-145); TOTAL CARBON DIOXIDE 27.1 MMOL/L (24-32); TOTAL PROTEIN 7.4 G/DL (6.4-8.2); eGFR 82 ML/MIN
[2021-09-04 11:07] LABS: TROPONIN I 0.13 NG/ML (0.0-0.05)
[2021-09-04] MEDS ORDERED: FLU VACC QS2021-22(6MOS UP)/PF 60 MCG/0.5 ML SYRINGE IM ONE (12:00)
[2021-09-04 14:00] VITALS: BP 120/82
[2021-09-04 15:00] VITALS: BP 107/70
[2021-09-04 15:18] LABS: URINE AMPHETAMINE SCREEN POSITIVE (Neg); URINE BARBITUATE SCREEN NEGATIVE (Neg); URINE BENZODIAZEPINES SCREEN POSITIVE (Neg); URINE CANNABINOID SCREEN NEGATIVE (Neg); URINE COCAINE SCREEN NEGATIVE (Neg); URINE METHADONE SCREEN NEGATIVE (Neg); URINE OPIATE SCREEN POSITIVE (Neg); URINE PHENCYCLIDINE SCREEN NEGATIVE (Neg)
[2021-09-04 16:00] LABS: CLARITY,URINE CLOUDY (Clear); COLOR,URINE YELLOW (Yellow); UA COLLECTION TYPE NON-SPECIFIED
[2021-09-04 16:01] LABS: GLUCOSE, URINE NEGATIVE (Neg); KETONES,URINE NEGATIVE (Neg); LEUKOCYTE ESTERASE ,URINE TRACE (Neg); NITRITES, URINE NEGATIVE (Neg); OCCULT BLOOD,URINE TRACE-LYSED (Neg); PH,URINE 6.5 (4.8-8.0); PROTEIN,URINE TRACE mg/dl (Neg); UROBILINOGEN,URINE 0.2 E.U/dL (0.2-1.0)
[2021-09-04 16:19] LABS: MUCUS STRANDS MODERATE /LPF (Neg); SQUAMOUS EPITHELIAL CELL,UR FEW /LPF (FEW)
[2021-09-04 16:20] LABS: BACTERIA,URINE 1+ /HPF (Neg); RBC,URINE 0-2 /HPF (0-2); TRANSITIONAL EPI CELLS,URINE FEW /HPF; WBC,URINE 50-100 /HPF (0-4)
--- NOTE | 2021-09-04 16:38 | NUR ---
DM consult: Pt with A1c 6.5%, DM education not warranted at this time. Will continue to follow. Addendum: 09/04/21 at [address] Amended: Links added.
[2021-09-04 16:40] LABS: ALANINE AMINOTRANSFERASE 22 U/L (12-78); ALBUMIN 3.3 G/DL (3.4-5.0); ALBUMIN/GLOBULIN RATIO 0.8 (1.1-1.5); ALKALINE PHOSPHATASE 117 IU/L (46-116); ANION GAP 8 (8-16); ASPARTATE AMINO TRANSFERASE 11 U/L (10-37); BILIRUBIN,TOTAL 0.4 MG/DL (0.1-1.0); BLOOD UREA NITROGEN 23 MG/DL (7-18); BUN/CREATININE RATIO 28.8 (6.6-38.0); CALCIUM 8.9 MG/DL (8.5-10.1); CHLORIDE 101 MMOL/L (99-107); GLUCOSE 137 MG/DL (70-104); POTASSIUM 4.1 MMOL/L (3.5-5.1); SODIUM 142 MMOL/L (135-145); TOTAL CARBON DIOXIDE 32.7 MMOL/L (24-32); TOTAL PROTEIN 7.3 G/DL (6.4-8.2); eGFR 78 ML/MIN
[2021-09-04] MEDS ORDERED: acetaminophen 325mg tablet PO PRN (17:55)
[2021-09-04 18:00] VITALS: BP 109/68
--- NOTE | 2021-09-04 18:22 | NUR ---
Problems reprioritized. Patient report given, questions answered & plan of care reviewed with Deirdre RICKETTS.
[2021-09-04] MEDS: lactobacillus rhamnosus 10,000 MMU CELLS/CAPSULE PO SCH (19:29)
[2021-09-04] MEDS: quetiapine 100mg tablet PO SCH (19:37)
[2021-09-04] MEDS: lurasidone 60mg tablet PO SCH (19:46)
[2021-09-04] MEDS ORDERED: K and/or MAG REPLACEMENT MC SCH (20:00)
[2021-09-04] MEDS: insulin glargine (Lantus) pen - multi-dose SQ SCH (21:00)
[2021-09-04 22:00] VITALS: BP 93/62
--- NOTE | 2021-09-05 00:06 | NUR ---
PATIENT CONTINUES TO FEEL SHORT OF BREATH, NONREBREATHER ON AT 15 LPM,PULSE OX AT 94%. CONTACTING MD TO SEE IF MORPHINE CAN BE ADDED. ASSITIONALLY, MOI ALBARRAN, ONE IV, HEPARIN STOPPED FOR INFUSION, AWAITING PTT RESULTS FROM 2300 09/04. MAURILIO RICKETTS
[2021-09-05] MEDS: morphine 2 MG/ML inj. syringe IV PRN ×6 (00:23→21:38)
[2021-09-05 02:00] VITALS: BP 89/57
[2021-09-05] MEDS: oxyCODONE IR 5mg (immed. release) tablet PO PRN ×2 (02:17→22:12)
[2021-09-05 06:00] VITALS: BP 110/54
--- NOTE | 2021-09-05 06:38 | NUR ---
Problems reprioritized. Patient report given, questions answered & plan of care reviewed with DEJA RICKETTS.
[2021-09-05 06:46] LABS: BASOPHILS # (AUTO) 0.1 X10'3 (0-0.2); BASOPHILS % (AUTO) 0.8 % (0-1); EOSINOPHILS # (AUTO) 0.4 X10'3 (0-0.9); HEMATOCRIT 32.8 % (35.0-45.0); HEMOGLOBIN 10.7 g/dl (12.0-16.0); LYMPHOCYTES # (AUTO) 1.7 X10'3 (1.1-4.8); LYMPHOCYTES % (AUTO) 21.8 % (21-51); MEAN CORPUSCULAR HGB CONC 32.7 g/dL (33.0-36.5); MEAN CORPUSCULAR VOLUME 82.5 FL (78-98); MEAN PLATELET VOLUME 7.2 FL (7.4-10.4); MONOCYTES # (AUTO) 0.8 X10'3 (0-0.9); MONOCYTES % (AUTO) 10.1 % (2-12); NEUTROPHILS # (AUTO) 4.9 X10'3 (1.8-7.7); NEUTROPHILS % (AUTO) 62.3 % (42-75); PLATELET COUNT 289 X10'3 (140-440); RED BLOOD COUNT 3.97 X10'6 (4.20-5.60); RED CELL DISTRIBUTION WIDTH 18.5 % (11.5-14.5); WHITE BLOOD COUNT 7.9 X10'3 (4.5-11.0)
[2021-09-05 07:14] LABS: ALANINE AMINOTRANSFERASE 16 U/L (12-78); ALBUMIN 3.2 G/DL (3.4-5.0); ALBUMIN/GLOBULIN RATIO 0.8 (1.1-1.5); ALKALINE PHOSPHATASE 114 IU/L (46-116); ANION GAP 12 (8-16); ASPARTATE AMINO TRANSFERASE 2 U/L (10-37); BILIRUBIN,TOTAL 0.5 MG/DL (0.1-1.0); BLOOD UREA NITROGEN 30 MG/DL (7-18); BUN/CREATININE RATIO 26.3 (6.6-38.0); CALCIUM 9.3 MG/DL (8.5-10.1); CHLORIDE 100 MMOL/L (99-107); CREATININE 1.14 MG/DL (0.40-0.90); GLUCOSE 157 MG/DL (70-104); MAGNESIUM 2.2 MG/DL (1.5-2.4); PHOSPHORUS 5.6 MG/DL (2.3-4.5); POTASSIUM 4.4 MMOL/L (3.5-5.1); SODIUM 142 MMOL/L (135-145); TOTAL CARBON DIOXIDE 30.5 MMOL/L (24-32); TOTAL PROTEIN 7.2 G/DL (6.4-8.2); TROPONIN I < 0.04 NG/ML (0.0-0.05); eGFR 52 ML/MIN
[2021-09-05] MEDS: divalproex 250mg tablet, delayed-release PO SCH (08:00)
[2021-09-05] MEDS: K and/or MAG REPLACEMENT MC SCH ×2 (08:00→20:00)
[2021-09-05] MEDS: heparin 25,000 UNIT/250ml bag 250 ML IV SCH ×4 (08:30→23:44)
[2021-09-05] MEDS: lisinopril 20mg tablet PO SCH (10:43)
[2021-09-05] MEDS: lactobacillus rhamnosus 10,000 MMU CELLS/CAPSULE PO SCH ×2 (10:44→20:00)
[2021-09-05] MEDS: calcium carbonate/vitamin D3 tablet PO SCH ×2 (10:44→20:00)
[2021-09-05] MEDS: docusate sod 250mg capsule PO SCH (10:44)
[2021-09-05] MEDS: propranolol 10mg tablet PO SCH ×2 (10:44→20:00)
[2021-09-05] MEDS: divalproex sod 250mg ER (24-hour) tablet PO SCH ×2 (10:46→22:02)
[2021-09-05 11:00] VITALS: BP 115/63
[2021-09-05] MEDS: CefTRIAXone/D5W-Rocephin 1gm 50 ML IV SCH (11:59)
[2021-09-05] MEDS: lisdexamfetamine dimesylate 10mg capsule PO SCH (12:33)
[2021-09-05] MEDS: lisdexamfetamine dimesylate 40mg capsule PO SCH (12:33)
[2021-09-05] MEDS: normal saline 1000ml 1,000 ML IV SCH (13:50)
[2021-09-05 15:00] VITALS: BP 110/71
--- NOTE | 2021-09-05 18:06 | NUR ---
Patient in room PCU 3023. I have received report from Kelly RICKETTS and had the opportunity to ask questions and assume patient care.
--- NOTE | 2021-09-05 18:38 | NUR ---
Problems reprioritized. Patient report given, questions answered & plan of care reviewed with Deirdre RICKETTS.
[2021-09-05 19:15] VITALS: BP 95/46
[2021-09-05] MEDS: insulin glargine (Lantus) pen - multi-dose SQ SCH (21:00)
[2021-09-05] MEDS ORDERED: VANCOMYCIN LEVEL IV ONE (21:30)
[2021-09-05] MEDS: quetiapine 100mg tablet PO SCH (21:37)
[2021-09-05 22:00] VITALS: BP 96/53
[2021-09-05] MEDS: lurasidone 60mg tablet PO SCH (22:02)
[2021-09-05] MEDS: heparin 10,000 units/1 ML INJ IV PRN (22:07)
[2021-09-06] MEDS: morphine 2 MG/ML inj. syringe IV PRN ×6 (01:46→20:26)
[2021-09-06 01:53] VITALS: BP 100/51
[2021-09-06 06:00] VITALS: BP 108/63
--- NOTE | 2021-09-06 06:00 | NUR ---
Problems reprioritized. Patient report given, questions answered & plan of care reviewed with DEJA RICKETTS.
[2021-09-06 06:51] LABS: BASOPHILS # (AUTO) 0.1 X10'3 (0-0.2); BASOPHILS % (AUTO) 0.9 % (0-1); EOSINOPHILS # (AUTO) 0.5 X10'3 (0-0.9); EOSINOPHILS % (AUTO) 6.5 % (0-6); HEMATOCRIT 30.4 % (35.0-45.0); LYMPHOCYTES # (AUTO) 2.3 X10'3 (1.1-4.8); LYMPHOCYTES % (AUTO) 33.1 % (21-51); MEAN CORPUSCULAR HEMOGLOBIN 26.9 PG (27.0-31.0); MEAN CORPUSCULAR HGB CONC 32.8 g/dL (33.0-36.5); MEAN CORPUSCULAR VOLUME 82.1 FL (78-98); MEAN PLATELET VOLUME 7.5 FL (7.4-10.4); MONOCYTES # (AUTO) 0.6 X10'3 (0-0.9); MONOCYTES % (AUTO) 8.9 % (2-12); NEUTROPHILS # (AUTO) 3.6 X10'3 (1.8-7.7); NEUTROPHILS % (AUTO) 50.6 % (42-75); PLATELET COUNT 277 X10'3 (140-440); RED BLOOD COUNT 3.71 X10'6 (4.20-5.60); RED CELL DISTRIBUTION WIDTH 18.5 % (11.5-14.5)
[2021-09-06 07:07] LABS: ALANINE AMINOTRANSFERASE 18 U/L (12-78); ALBUMIN 3.1 G/DL (3.4-5.0); ALBUMIN/GLOBULIN RATIO 0.8 (1.1-1.5); ALKALINE PHOSPHATASE 106 IU/L (46-116); ANION GAP 10 (8-16); ASPARTATE AMINO TRANSFERASE 12 U/L (10-37); BILIRUBIN,TOTAL 0.3 MG/DL (0.1-1.0); CALCIUM 9.4 MG/DL (8.5-10.1); CHLORIDE 101 MMOL/L (99-107); GLUCOSE 132 MG/DL (70-104); MAGNESIUM 2.3 MG/DL (1.5-2.4); PHOSPHORUS 5.7 MG/DL (2.3-4.5); POTASSIUM 4.6 MMOL/L (3.5-5.1); SODIUM 142 MMOL/L (135-145); TOTAL CARBON DIOXIDE 31.1 MMOL/L (24-32); TOTAL PROTEIN 7.1 G/DL (6.4-8.2)
[2021-09-06 07:28] LABS: BLOOD UREA NITROGEN 37 MG/DL (7-18); BUN/CREATININE RATIO 29.6 (6.6-38.0)
[2021-09-06 07:40] LABS: CREATININE 1.25 MG/DL (0.40-0.90); eGFR 47 ML/MIN
--- NOTE | 2021-09-06 07:42 | NUR ---
page critical PTT PAGER ID: [phone] MESSAGE: room [id number] Nicole Aaron, critical lab, DVT PTT: [id number], holding infusion for 120 minutes per protocol, thank you, Kelly RICKETTS [id number]
[2021-09-06] MEDS: lisinopril 20mg tablet PO SCH (08:00)
[2021-09-06] MEDS: K and/or MAG REPLACEMENT MC SCH ×2 (08:00→20:00)
[2021-09-06] MEDS: calcium carbonate/vitamin D3 tablet PO SCH ×2 (08:27→20:25)
[2021-09-06] MEDS: lactobacillus rhamnosus 10,000 MMU CELLS/CAPSULE PO SCH ×2 (08:27→20:24)
[2021-09-06] MEDS: docusate sod 250mg capsule PO SCH (08:27)
[2021-09-06] MEDS: divalproex 250mg tablet, delayed-release PO SCH (08:27)
[2021-09-06] MEDS: divalproex sod 250mg ER (24-hour) tablet PO SCH ×2 (08:27→21:50)
[2021-09-06] MEDS: propranolol 10mg tablet PO SCH ×2 (08:29→20:25)
[2021-09-06] MEDS: CefTRIAXone/D5W-Rocephin 1gm 50 ML IV SCH (08:31)
[2021-09-06] MEDS: lisdexamfetamine dimesylate 40mg capsule PO SCH (08:58)
[2021-09-06] MEDS: lisdexamfetamine dimesylate 10mg capsule PO SCH (08:58)
[2021-09-06] MEDS ORDERED: furosemide 40mg/4ml inj IV ONE (10:40)
[2021-09-06] MEDS ORDERED: ipratropium/albuterol 3ml nebule NEB PRN (10:40)
[2021-09-06] MEDS ORDERED: methylPREDNISolone sod succ 125mg/2ml vial IV ONE (10:40)
[2021-09-06 11:00] VITALS: BP 120/64
[2021-09-06] MEDS: ipratropium/albuterol 3ml nebule NEB SCH ×4 (11:10→23:22)
[2021-09-06] MEDS: heparin 25,000 UNIT/250ml bag 250 ML IV SCH ×2 (11:19→15:05)
[2021-09-06 15:00] VITALS: BP 118/67
[2021-09-06] MEDS: heparin 10,000 units/1 ML INJ IV PRN (15:02)
[2021-09-06 18:00] VITALS: BP 110/54
--- NOTE | 2021-09-06 18:43 | NUR ---
Problems reprioritized. Patient report given, questions answered & plan of care reviewed with Diogo RN.
[2021-09-06] MEDS: methylPREDNISolone sod succ/PF 40mg inj. IV SCH (20:25)
[2021-09-06] MEDS: furosemide 40mg/4ml inj IV SCH (20:25)
[2021-09-06] MEDS: lurasidone 60mg tablet PO SCH (21:45)
[2021-09-06] MEDS: quetiapine 100mg tablet PO SCH (21:46)
[2021-09-06 21:57] VITALS: BP 110/61
[2021-09-06] MEDS: insulin glargine (Lantus) pen - multi-dose SQ SCH (22:06)
[2021-09-07] MEDS: methylPREDNISolone sod succ/PF 40mg inj. IV SCH ×4 (01:28→19:57)
[2021-09-07 01:50] VITALS: BP 122/66
[2021-09-07] MEDS: heparin 25,000 UNIT/250ml bag 250 ML IV SCH (02:27)
[2021-09-07] MEDS: ipratropium/albuterol 3ml nebule NEB SCH ×5 (03:41→23:51)
--- NOTE | 2021-09-07 04:56 | NUR ---
NURSE AND CHARGE NURSE ATTEMPTED TO DRAW AM LAB. CONTACTED LAB TO DRAW MORNING PTT WHEN AVAILABLE.
[2021-09-07 05:12] LABS: BASOPHILS % (AUTO) 0.4 % (0-1); EOSINOPHILS % (AUTO) 0 % (0-6); HEMATOCRIT 32.3 % (35.0-45.0); HEMOGLOBIN 10.4 g/dl (12.0-16.0); LYMPHOCYTES # (AUTO) 0.9 X10'3 (1.1-4.8); LYMPHOCYTES % (AUTO) 17.7 % (21-51); MEAN CORPUSCULAR HEMOGLOBIN 26.4 PG (27.0-31.0); MEAN CORPUSCULAR HGB CONC 32.1 g/dL (33.0-36.5); MEAN CORPUSCULAR VOLUME 82.4 FL (78-98); MEAN PLATELET VOLUME 7.4 FL (7.4-10.4); MONOCYTES # (AUTO) 0.2 X10'3 (0-0.9); MONOCYTES % (AUTO) 3.4 % (2-12); NEUTROPHILS # (AUTO) 3.8 X10'3 (1.8-7.7); NEUTROPHILS % (AUTO) 78.5 % (42-75); PLATELET COUNT 292 X10'3 (140-440); RED BLOOD COUNT 3.92 X10'6 (4.20-5.60); RED CELL DISTRIBUTION WIDTH 18.1 % (11.5-14.5); WHITE BLOOD COUNT 4.8 X10'3 (4.5-11.0)
[2021-09-07 05:26] LABS: ALANINE AMINOTRANSFERASE 22 U/L (12-78); ALBUMIN 3.3 G/DL (3.4-5.0); ALBUMIN/GLOBULIN RATIO 0.8 (1.1-1.5); ALKALINE PHOSPHATASE 114 IU/L (46-116); ANION GAP 9 (8-16); ASPARTATE AMINO TRANSFERASE 9 U/L (10-37); BILIRUBIN,TOTAL 0.3 MG/DL (0.1-1.0); BLOOD UREA NITROGEN 43 MG/DL (7-18); CHLORIDE 100 MMOL/L (99-107); CREATININE 1.23 MG/DL (0.40-0.90); GLUCOSE 210 MG/DL (70-104); LACTATE DEHYDROGENASE 184 U/L (81-234); MAGNESIUM 2.1 MG/DL (1.5-2.4); POTASSIUM 4.7 MMOL/L (3.5-5.1); SODIUM 143 MMOL/L (135-145); TOTAL CARBON DIOXIDE 34.5 MMOL/L (24-32); TOTAL PROTEIN 7.5 G/DL (6.4-8.2); eGFR 48 ML/MIN
[2021-09-07 06:00] VITALS: BP 133/67
[2021-09-07] MEDS: lisdexamfetamine dimesylate 40mg capsule PO SCH (08:25)
[2021-09-07] MEDS: docusate sod 250mg capsule PO SCH (08:25)
[2021-09-07] MEDS: lisdexamfetamine dimesylate 10mg capsule PO SCH (08:25)
[2021-09-07] MEDS: calcium carbonate/vitamin D3 tablet PO SCH ×2 (08:26→19:56)
[2021-09-07] MEDS: propranolol 10mg tablet PO SCH ×2 (08:26→19:56)
[2021-09-07] MEDS: divalproex 250mg tablet, delayed-release PO SCH (08:26)
[2021-09-07] MEDS: lactobacillus rhamnosus 10,000 MMU CELLS/CAPSULE PO SCH ×2 (08:26→19:56)
[2021-09-07] MEDS: lisinopril 20mg tablet PO SCH (08:27)
[2021-09-07] MEDS: furosemide 40mg/4ml inj IV SCH ×2 (08:28→19:57)
[2021-09-07] MEDS: morphine 2 MG/ML inj. syringe IV PRN ×5 (08:43→22:56)
[2021-09-07] MEDS: CefTRIAXone/D5W-Rocephin 1gm 50 ML IV SCH (08:47)
[2021-09-07] MEDS: insulin Lispro (HumaLOG) vial - multi-dose SQ SCH ×2 (08:59→14:00)
[2021-09-07] MEDS: divalproex sod 250mg ER (24-hour) tablet PO SCH ×2 (09:09→21:19)
[2021-09-07 11:00] VITALS: BP 127/67
[2021-09-07] MEDS: oxyCODONE IR 5mg (immed. release) tablet PO PRN (14:03)
[2021-09-07 18:00] VITALS: BP_SYST 113; BP_SYST 116; BP_DIAS 49; BP_DIAS 58
[2021-09-07 18:46] LABS: PARTIAL THROMBOPLASTIN TIME 68 SECONDS (22-32)
[2021-09-07] MEDS: K and/or MAG REPLACEMENT MC SCH (20:00)
[2021-09-07] MEDS: lurasidone 60mg tablet PO SCH (21:20)
[2021-09-07] MEDS: quetiapine 100mg tablet PO SCH (21:20)
[2021-09-07] MEDS: insulin glargine (Lantus) pen - multi-dose SQ SCH (21:47)
[2021-09-07 22:00] VITALS: BP 108/50
[2021-09-08] MEDS: heparin 25,000 UNIT/250ml bag 250 ML IV SCH ×2 (00:24→10:47)
[2021-09-08] MEDS: piperacillin/tazo 3.375gm/50ml 50 ML IV SCH ×3 (01:44→17:01)
[2021-09-08 02:00] VITALS: BP 110/58
[2021-09-08] MEDS: morphine 2 MG/ML inj. syringe IV PRN ×6 (02:47→21:23)
[2021-09-08] MEDS: methylPREDNISolone sod succ/PF 40mg inj. IV SCH ×4 (02:47→20:12)
[2021-09-08 03:50] LABS: BASOPHILS # (AUTO) 0.1 X10'3 (0-0.2); BASOPHILS % (AUTO) 1.3 % (0-1); EOSINOPHILS % (AUTO) 0 % (0-6); HEMATOCRIT 34.1 % (35.0-45.0); HEMOGLOBIN 10.8 g/dl (12.0-16.0); LYMPHOCYTES # (AUTO) 1.4 X10'3 (1.1-4.8); LYMPHOCYTES % (AUTO) 16.7 % (21-51); MEAN CORPUSCULAR HEMOGLOBIN 26.4 PG (27.0-31.0); MEAN CORPUSCULAR HGB CONC 31.8 g/dL (33.0-36.5); MEAN CORPUSCULAR VOLUME 82.9 FL (78-98); MEAN PLATELET VOLUME 7.7 FL (7.4-10.4); MONOCYTES # (AUTO) 0.5 X10'3 (0-0.9); MONOCYTES % (AUTO) 5.9 % (2-12); NEUTROPHILS # (AUTO) 6.2 X10'3 (1.8-7.7); NEUTROPHILS % (AUTO) 76.1 % (42-75); PLATELET COUNT 331 X10'3 (140-440); RED BLOOD COUNT 4.11 X10'6 (4.20-5.60); RED CELL DISTRIBUTION WIDTH 18.6 % (11.5-14.5); WHITE BLOOD COUNT 8.2 X10'3 (4.5-11.0)
[2021-09-08 03:56] LABS: PARTIAL THROMBOPLASTIN TIME 57 SECONDS (22-32)
[2021-09-08 03:58] LABS: ALANINE AMINOTRANSFERASE 26 U/L (12-78); ALBUMIN 3.3 G/DL (3.4-5.0); ALBUMIN/GLOBULIN RATIO 0.7 (1.1-1.5); ALKALINE PHOSPHATASE 110 IU/L (46-116); ANION GAP 7 (8-16); ASPARTATE AMINO TRANSFERASE 11 U/L (10-37); BILIRUBIN,TOTAL 0.2 MG/DL (0.1-1.0); BLOOD UREA NITROGEN 44 MG/DL (7-18); BUN/CREATININE RATIO 38.6 (6.6-38.0); CALCIUM 9.8 MG/DL (8.5-10.1); CHLORIDE 99 MMOL/L (99-107); CREATININE 1.14 MG/DL (0.40-0.90); GLUCOSE 197 MG/DL (70-104); MAGNESIUM 2.1 MG/DL (1.5-2.4); PHOSPHORUS 4.5 MG/DL (2.3-4.5); POTASSIUM 4.8 MMOL/L (3.5-5.1); SODIUM 143 MMOL/L (135-145); TOTAL PROTEIN 7.8 G/DL (6.4-8.2); eGFR 52 ML/MIN
[2021-09-08] MEDS: ipratropium/albuterol 3ml nebule NEB SCH ×6 (04:09→23:20)
[2021-09-08 04:50] LABS: ANISOCYTOSIS 2+; PLATELET ESTIMATE NORMAL
[2021-09-08 04:53] LABS: STOMATOCYTES FEW
--- NOTE | 2021-09-08 06:25 | NUR ---
Patient in room PCU 3027. I have received report from LILIAM Lind and had the opportunity to ask questions and assume patient care.
--- NOTE | 2021-09-08 06:38 | NUR ---
CALL LIGHT PLACED WITHIN REACH. NO SIGNS OF DISTRESS NOTED. VSS THROUGHOUT SHIFT. PATIENT C/O PAIN TO BACK. PAIN MEDICATION ADMINISTERED PER ORDER. PATIENT AWARE OF PLAN OF CARE. REPORT GIVEN TO AM NURSE.
[2021-09-08 07:00] VITALS: BP 139/83
[2021-09-08] MEDS: K and/or MAG REPLACEMENT MC SCH (08:00)
[2021-09-08] MEDS: calcium carbonate/vitamin D3 tablet PO SCH ×2 (09:31→20:13)
[2021-09-08] MEDS: lisdexamfetamine dimesylate 10mg capsule PO SCH (09:32)
[2021-09-08] MEDS: lisinopril 20mg tablet PO SCH (09:32)
[2021-09-08] MEDS: docusate sod 250mg capsule PO SCH (09:32)
[2021-09-08] MEDS: lactobacillus rhamnosus 10,000 MMU CELLS/CAPSULE PO SCH ×2 (09:32→20:13)
[2021-09-08] MEDS: lisdexamfetamine dimesylate 40mg capsule PO SCH (09:32)
[2021-09-08] MEDS: furosemide 40mg/4ml inj IV SCH ×2 (09:33→20:13)
[2021-09-08] MEDS: divalproex sod 250mg ER (24-hour) tablet PO SCH ×2 (09:44→21:24)
[2021-09-08] MEDS: propranolol 10mg tablet PO SCH ×3 (09:47→21:23)
[2021-09-08] MEDS: divalproex 250mg tablet, delayed-release PO SCH (10:04)
[2021-09-08 11:00] VITALS: BP 138/82
[2021-09-08] MEDS ORDERED: bisacodyl 10mg suppository rectal RC PRN (12:30)
--- NOTE | 2021-09-08 14:07 | NUR ---
Initial: Pt admit for acute pulmonary embolism and noted to have a UTI. Currently on a CHO controlled diet with average 50-75% PO intake however up to 100% PO intake at breakfast this morning. LBM 09/04, receiving routine bowel care. PRN Dulcolax suppository added to med list today. D/w dietary to send power pudding with next meal to further assist with bowel regularity. Will continue to follow and monitor need for further nutrition intervention pending additional trends in PO intake given recent improvement. Recommendations: 1) Continue CHO controlled diet 2) Monitor need for ONS/additional protein 3) Routine bowel care 4) Scaled weight this admit; weekly scaled weights thereafter Addendum: 09/08/21 at [address] Amended: Links added.
[2021-09-08] MEDS: insulin Lispro (HumaLOG) vial - multi-dose SQ SCH ×2 (14:25→23:59)
[2021-09-08 15:00] VITALS: BP 129/77
--- NOTE | 2021-09-08 18:50 | NUR ---
Problems reprioritized. Patient report given, questions answered & plan of care reviewed with LILIAM Bell. Pt sitting up in bedside chair. All pt needs met at this time.
[2021-09-08] MEDS: lurasidone 60mg tablet PO SCH (21:23)
[2021-09-08] MEDS: quetiapine 100mg tablet PO SCH (21:23)
[2021-09-09] MEDS: insulin glargine (Lantus) pen - multi-dose SQ SCH ×2 (00:03→22:21)
[2021-09-09] MEDS: heparin 25,000 UNIT/250ml bag 250 ML IV SCH ×3 (03:11→15:12)
[2021-09-09] MEDS: ipratropium/albuterol 3ml nebule NEB SCH ×6 (03:29→23:28)
[2021-09-09] MEDS: morphine 2 MG/ML inj. syringe IV PRN ×6 (04:15→20:35)
[2021-09-09] MEDS: methylPREDNISolone sod succ/PF 40mg inj. IV SCH ×2 (04:15→20:25)
[2021-09-09] MEDS: piperacillin/tazo 3.375gm/50ml 50 ML IV SCH ×3 (04:16→16:15)
[2021-09-09 06:00] VITALS: BP 130/71
--- NOTE | 2021-09-09 06:33 | NUR ---
Patient in room U 3027. I have received report from Gretta RICKETTS Traveler and had the opportunity to ask questions and assume patient care.
[2021-09-09 06:38] LABS: MAGNESIUM 2.4 MG/DL (1.5-2.4); PHOSPHORUS 4.5 MG/DL (2.3-4.5)
[2021-09-09] MEDS: lisinopril 20mg tablet PO SCH (08:00)
[2021-09-09] MEDS: K and/or MAG REPLACEMENT MC SCH ×2 (08:00→20:00)
--- NOTE | 2021-09-09 09:00 | NUR ---
Patient in room PCU 3027. I have received report from LILIAM Moore and had the opportunity to ask questions and assume patient care.
--- NOTE | 2021-09-09 09:10 | NUR ---
Problems reprioritized. Patient report given, questions answered & plan of care reviewed with Rajani RICKETTS.
[2021-09-09 11:00] VITALS: BP 103/64
[2021-09-09] MEDS: furosemide 40mg/4ml inj IV SCH ×2 (11:00→20:25)
[2021-09-09] MEDS: lactobacillus rhamnosus 10,000 MMU CELLS/CAPSULE PO SCH ×2 (11:01→20:25)
[2021-09-09] MEDS: divalproex 250mg tablet, delayed-release PO SCH (11:01)
[2021-09-09] MEDS: docusate sod 250mg capsule PO SCH (11:02)
[2021-09-09] MEDS: lisdexamfetamine dimesylate 40mg capsule PO SCH (11:02)
[2021-09-09] MEDS: propranolol 10mg tablet PO SCH ×2 (11:03→20:00)
[2021-09-09] MEDS: calcium carbonate/vitamin D3 tablet PO SCH ×2 (11:18→20:25)
[2021-09-09] MEDS: divalproex sod 250mg ER (24-hour) tablet PO SCH ×2 (11:33→20:33)
[2021-09-09] MEDS: lisdexamfetamine dimesylate 10mg capsule PO SCH (11:33)
[2021-09-09] MEDS: insulin Lispro (HumaLOG) vial - multi-dose SQ SCH (13:03)
[2021-09-09 15:00] VITALS: BP 110/65
[2021-09-09] MEDS: heparin 10,000 units/1 ML INJ IV PRN (15:14)
--- NOTE | 2021-09-09 17:47 | NUR ---
[place] Medication Administration: For this medication-pass time frame, all medication were reviewed, dispensed, administered and documented per hospital policy by LILIAM Posada.
--- NOTE | 2021-09-09 17:47 | NUR ---
[place] documentation: I have reviewed and agree with all interventions, assessments performed and documented by LILIAM Posada.
--- NOTE | 2021-09-09 18:30 | NUR ---
Problems reprioritized. Patient report given, questions answered & plan of care reviewed with LILIAM Bell. Pt sitting up in bedside chair, resting comfortably at change of shift. No signs of distress noted at this time.
[2021-09-09] MEDS: lurasidone 60mg tablet PO SCH (20:33)
[2021-09-09] MEDS: quetiapine 100mg tablet PO SCH (22:17)
[2021-09-10] MEDS: piperacillin/tazo 3.375gm/50ml 50 ML IV SCH ×2 (01:07→09:02)
[2021-09-10] MEDS: morphine 2 MG/ML inj. syringe IV PRN ×3 (01:29→12:01)
[2021-09-10] MEDS: ipratropium/albuterol 3ml nebule NEB SCH ×3 (03:24→12:19)
[2021-09-10 06:00] VITALS: BP 119/69
[2021-09-10] MEDS: propranolol 10mg tablet PO SCH (08:00)
[2021-09-10] MEDS: lisinopril 20mg tablet PO SCH (08:00)
[2021-09-10] MEDS: furosemide 40mg/4ml inj IV SCH (08:00)
[2021-09-10] MEDS: lactobacillus rhamnosus 10,000 MMU CELLS/CAPSULE PO SCH (08:59)
[2021-09-10] MEDS: divalproex 250mg tablet, delayed-release PO SCH (08:59)
[2021-09-10] MEDS: docusate sod 250mg capsule PO SCH (08:59)
[2021-09-10] MEDS: calcium carbonate/vitamin D3 tablet PO SCH (08:59)
[2021-09-10] MEDS: lisdexamfetamine dimesylate 10mg capsule PO SCH (09:00)
[2021-09-10] MEDS: lisdexamfetamine dimesylate 40mg capsule PO SCH (09:01)
[2021-09-10] MEDS: divalproex sod 250mg ER (24-hour) tablet PO SCH (09:01)
[2021-09-10] MEDS: methylPREDNISolone sod succ/PF 40mg inj. IV SCH (09:02)
[2021-09-10] MEDS: insulin Lispro (HumaLOG) vial - multi-dose SQ SCH ×2 (09:24→13:20)
[2021-09-10] MEDS: heparin 25,000 UNIT/250ml bag 250 ML IV SCH (09:39)
[2021-09-10] MEDS: heparin 10,000 units/1 ML INJ IV PRN (09:40)
[2021-09-10 11:16] VITALS: BP 109/66
[2021-09-10 11:30] LABS: BASOPHILS # (AUTO) 0.1 X10'3 (0-0.2); BASOPHILS % (AUTO) 0.8 % (0-1); EOSINOPHILS # (AUTO) 0.1 X10'3 (0-0.9); EOSINOPHILS % (AUTO) 0.8 % (0-6); HEMATOCRIT 37.7 % (35.0-45.0); LYMPHOCYTES # (AUTO) 2.2 X10'3 (1.1-4.8); LYMPHOCYTES % (AUTO) 26.9 % (21-51); MEAN CORPUSCULAR HEMOGLOBIN 26.3 PG (27.0-31.0); MEAN CORPUSCULAR HGB CONC 31.7 g/dL (33.0-36.5); MEAN CORPUSCULAR VOLUME 82.8 FL (78-98); MEAN PLATELET VOLUME 7.3 FL (7.4-10.4); MONOCYTES # (AUTO) 0.7 X10'3 (0-0.9); MONOCYTES % (AUTO) 8.4 % (2-12); NEUTROPHILS # (AUTO) 5.1 X10'3 (1.8-7.7); NEUTROPHILS % (AUTO) 63.1 % (42-75); PLATELET COUNT 370 X10'3 (140-440); RED BLOOD COUNT 4.56 X10'6 (4.20-5.60); RED CELL DISTRIBUTION WIDTH 18.4 % (11.5-14.5); WHITE BLOOD COUNT 8.1 X10'3 (4.5-11.0)
[2021-09-10] MEDS ORDERED: APIX5TAB3 PO (11:37)
[2021-09-10 11:45] LABS: ALANINE AMINOTRANSFERASE 45 U/L (12-78); ALBUMIN 3.3 G/DL (3.4-5.0); ALBUMIN/GLOBULIN RATIO 0.8 (1.1-1.5); ALKALINE PHOSPHATASE 85 IU/L (46-116); ANION GAP 9 (8-16); ASPARTATE AMINO TRANSFERASE 16 U/L (10-37); BILIRUBIN,TOTAL 0.3 MG/DL (0.1-1.0); BLOOD UREA NITROGEN 49 MG/DL (7-18); BUN/CREATININE RATIO 42.2 (6.6-38.0); CALCIUM 9.4 MG/DL (8.5-10.1); CHLORIDE 98 MMOL/L (99-107); CREATININE 1.16 MG/DL (0.40-0.90); GLUCOSE 151 MG/DL (70-104); POTASSIUM 4.1 MMOL/L (3.5-5.1); SODIUM 142 MMOL/L (135-145); TOTAL CARBON DIOXIDE 35.4 MMOL/L (24-32); TOTAL PROTEIN 7.4 G/DL (6.4-8.2); eGFR 51 ML/MIN
--- NOTE | 2021-09-10 11:46 | NUR ---
MD Hurst requesting abg done prior to discharge. she is aware pt on heparin gtt and 02 is down to 2L Addendum: 09/10/21 at 1148 by Rod Dickens RN rt notified of order, said she needs to complete in icu then will f/u on d/c abg
[2021-09-10 12:24] LABS: ABG BASE EXCESS 7.1 mmol/L (-2.0-2.0); ABG HCO3 32.1 mmol/L (22.0-26.0); ABG OXYGEN SATURATION 95.1 % (94-97); ABG PCO2 (T) 47.4 mmHg (32.0-45.0); ALLEN'S TEST POSITIVE; FCOHb 0.3 % (0.0-3.9); FLOW 2 L/min; FMetHb 0.4 % (0.0-1.5); FO2Hb 94.4 % (94-97); TOTAL HEMOGLOBIN 12.8 G/dl (12.0-16.0)
--- NOTE | 2021-09-10 12:30 | NUR ---
1230 Heparin gtt stopped per md jean verbal order. pt will start deon knight.
--- NOTE | 2021-09-10 13:00 | NUR ---
1300- reviewed and signed disch papers. answered questions, vss, says she is " happy to be heading home". iv removed x2 and caths intact. 2lnc, daughter to bring home o2 and home w/c. provided disch papers. 1330- daughter called to say she is late and rx not available from [facility]. placed a call to [facility] and gave new rx for elequis. 1340- pt gone, room clear of all her belongings, charge and construction secretary says she did not check out at desk. presumed daughter arrived with her things and they left.
--- NOTE | 2021-09-10 13:04 | NUR ---
PAGER ID: [phone] MESSAGE: [phone] Miroslava Aaron
--- NOTE | 2021-09-10 13:40 | NUR ---
Disch to home at this time.
== END 2021-09-10 14:40 | disposition home or self-care (01) | DRG 175 ==
LOC: ER 14:31 → ED HOLD 19:33 → PCU 3S 09-04 13:56
PROVIDERS: ADMIT Internal Medicine; ATTEND Family Medicine
PROC: B32T1ZZ Computerized Tomography (CT Scan) of Left Pulmonary Artery using Low Osmolar Contrast (ICD-10-PCS; 2021-09-03)
PROC: B3201ZZ Computerized Tomography (CT Scan) of Thoracic Aorta using Low Osmolar Contrast (ICD-10-PCS; 2021-09-03)
PROC: B32S1ZZ Computerized Tomography (CT Scan) of Right Pulmonary Artery using Low Osmolar Contrast (ICD-10-PCS; 2021-09-03)
PROC: 3E02340 Introduction of Influenza Vaccine into Muscle, Percutaneous Approach (ICD-10-PCS; principal; 2021-09-04)
PROC: 5A0945A Assistance with Respiratory Ventilation, 24-96 Consecutive Hours, High Flow/Velocity Cannula (ICD-10-PCS; 2021-09-04)
PROC: 5A0935A Assistance with Respiratory Ventilation, Less than 24 Consecutive Hours, High Flow/Velocity Cannula (ICD-10-PCS; 2021-09-09)
DX: I26.99 Other pulmonary embolism without acute cor pulmonale (principal); I21.A1 Myocardial infarction type 2; Z68.41 Body mass index [BMI] 40.0-44.9, adult; N39.0 Urinary tract infection, site not specified; J90 Pleural effusion, not elsewhere classified; Z16.24 Resistance to multiple antibiotics; E66.2 Morbid (severe) obesity with alveolar hypoventilation; J44.1 Chronic obstructive pulmonary disease with (acute) exacerbation; Z20.822 Contact with and (suspected) exposure to COVID-19; E11.40 Type 2 diabetes mellitus with diabetic neuropathy, unspecified; E78.00 Pure hypercholesterolemia, unspecified; F15.90 Other stimulant use, unspecified, uncomplicated; F41.9 Anxiety disorder, unspecified; M54.9 Dorsalgia, unspecified; E78.5 Hyperlipidemia, unspecified; F31.9 Bipolar disorder, unspecified; G89.4 Chronic pain syndrome; B96.20 Unspecified Escherichia coli [E. coli] as the cause of diseases classified elsewhere; I10 Essential (primary) hypertension; Z82.49 Family history of ischemic heart disease and other diseases of the circulatory system; Z71.3 Dietary counseling and surveillance; Z23 Encounter for immunization; Z83.3 Family history of diabetes mellitus; Z87.891 Personal history of nicotine dependence; Z88.5 Allergy status to narcotic agent; Z88.2 Allergy status to sulfonamides; Z88.8 Allergy status to other drugs, medicaments and biological substances; Z91.030 Bee allergy status; Z90.49 Acquired absence of other specified parts of digestive tract; Z79.899 Other long term (current) drug therapy; Z79.4 Long term (current) use of insulin
CPT/HCPCS: 36415; 36600; 71045; 71275; 76604; 80053; 80305; 81001; 82803; 82948; 83036; 83615; 83735; 83880; 84100; 84145; 84443; 84484; 85008; 85018; 85025; 85730; 87077; 87081; 87088; 87186; 87635; 93005; 93306; 93970; 94640; 94760; 96374; 97110; 97116; 97162; 97530; 99285; C9803; G0378; J0696; J1170; J1644; J1815; J1940; J2270; J2543; J2920; J2930; J3370; J7030; Q9967

== ENCOUNTER 2022-08-06 17:17 | Emergency (ER) | payer MEDICARE, MEDICAID ==
[~2022-08-06] VITALS: Ht 165.1 cm; Wt 97.7 kg
[~2022-08-06 17:17] MED LIST changes: -ALPR1TAB2 PO; +APIX5TAB3 PO; -BUSP10TA11 PO; +DIVA-74 PO; -DIVA500T2 PO; +DIVA500T9 PO; +DOCU250C40 PO; -LACT1CAP60 PO; -LANTUS SQ; +LISD50CA3 PO; +LISI20TA28 PO; +LURA120T PO; -LURA20TA PO; -LURA80TA3 PO; -METF500T PO; +OXYC5TAB2 PO; +PROP20TA6 PO; -PROP40TA72 PO; +QUET100T34 PO; -QUET200T PO; -ROSU20TA2 PO; +ROSU40TA PO; -SERT100T PO; +[UNRECOGNIZED DRUG - CODE] PO
[2022-08-06 17:58] VITALS: BP 150/84
[2022-08-06] MEDS ORDERED: CEPH250T PO (18:19)
[2022-08-06] MEDS ORDERED: cephalexin 250mg capsule PO ONE (18:20)
== END 2022-08-06 18:45 | disposition home or self-care (01) ==
LOC: ER 17:17
DX: L03.115 Cellulitis of right lower limb (principal); E11.9 Type 2 diabetes mellitus without complications; I10 Essential (primary) hypertension; G89.29 Other chronic pain; M54.50 Low back pain, unspecified; F31.9 Bipolar disorder, unspecified; F15.20 Other stimulant dependence, uncomplicated; Z88.2 Allergy status to sulfonamides; Z91.040 Latex allergy status; Z88.5 Allergy status to narcotic agent; Z88.8 Allergy status to other drugs, medicaments and biological substances; Z90.49 Acquired absence of other specified parts of digestive tract
CPT/HCPCS: 99283